=== PATIENT | male | born 1975 | race Caucasian/White ===

== ENCOUNTER 2016-12-15 15:46 | Inpatient (IN) | payer MEDICAID, OTHER ==
[~2016-12-15] VITALS: Ht 177.8 cm; Wt 59.1 kg
[~2016-12-15 15:46] MED LIST: ACET-2247 PO; ACET500C44 PO; AMLO-511 PO; ATRO2DRO OD; BIMA12.5OS OD; BISA5TAB12 PO; BRIM15OS OD; CILO2.5OS OD; CLON.1 PO; DICL1OS OD; DSS100 PO; HYDR-3965 PO; MOM30 PO; MULT-29 PO; PANT40TA25 PO; PREDAOS OD; TIMO10DR28 OD; ZOLP5 PO
[2016-12-15] MEDS ORDERED: TRAZ-144 PO (16:17)
[2016-12-15] MEDS ORDERED: HYDR-4031 PO (16:17)
[2016-12-15] MEDS ORDERED: PROP20 PO (16:17)
[2016-12-15] MEDS ORDERED: BUPR150SR PO (16:17)
[2016-12-15] MEDS ORDERED: LORazepam 2 MG TABLET PO PRN (19:00)
[2016-12-15] MEDS ORDERED: ZOLPIDEM TARTRATE 10 MG TABLET PO PRN (19:00)
[2016-12-15 19:23] LABS: BASOPHILS % (AUTO) 0.2 % (0.0-2.0); EOSINOPHILS % (AUTO) 0.5 % (1.0-6.0); HEMATOCRIT 43.5 % (41-53); HEMOGLOBIN 14.4 g/dL (13.5-17.5); LYMPHOCYTES % (AUTO) 18.7 % (22.0-44.0); MEAN CORPUSCULAR HEMOGLOBIN 32.4 pg (26.0-34.0); MEAN CORPUSCULAR HGB CONC 33.1 G/dL (31.0-37.0); MEAN CORPUSCULAR VOLUME 98 fL (80-100); MONOCYTES # (AUTO) 0.5 K/uL (0.1-1.0); NEUTROPHILS # (AUTO) 3.8 K/uL (1.8-7.7); NEUTROPHILS % (AUTO) 71.6 % (40.0-70.0); PLATELET COUNT (AUTO) 152 K/uL (150-450); RED BLOOD CELL COUNT(AUTO) 4.44 MIL/uL (4.50-5.90); RED CELL DISTRIBUTION WIDTH 13.3 % (11.5-14.5); WHITE BLOOD COUNT (AUTO) 5.3 K/uL (4.5-11.0)
[2016-12-15 19:30] LABS: ANION GAP 11 mmol/L (8-16); CALCIUM, TOTAL 8.8 mg/dL (8.8-10.5); CARBON DIOXIDE 28 mmol/L (22-29); CHLORIDE 99 mmol/L (98-107); CREATININE 1.05 mg/dL (0.60-1.30); GLOMERULAR FILTR. RATE CALC > 60 mL/min (>60); POTASSIUM 4.4 mmol/L (3.5-5.1); SODIUM SERUM 138 mmol/L (136-145); UREA NITROGEN, BLOOD 9 mg/dL (7-18)
[2016-12-15 19:36] LABS: ALANINE AMINOTRANSFERASE 93 U/L (12-78); ALBUMIN 3.9 g/dL (3.4-5.0); ASPARTATE AMINOTRANSFERASE 170 U/L (15-37); BILIRUBIN,TOTAL 0.5 mg/dL (0.1-1.0); TOTAL PROTEIN, SERUM 9.3 g/dL (6.4-8.2)
[2016-12-16] VITALS (11 sets, daily range): BP systolic 106–139; BP diastolic 58–94
[2016-12-16] MEDS ORDERED: LOPERAMIDE HCL 2 MG CAPSULE PO PRN (07:45)
[2016-12-16] MEDS ORDERED: CYANOCOBALAMIN 1,000 MCG/ML VIAL IM ONE (07:45)
[2016-12-16] MEDS ORDERED: GuaiFENesin/D-METHORPHAN [SUGAR-FREE] 200-20MG/10 ML SYRUP UDCUP PO PRN (07:45)
[2016-12-16] MEDS ORDERED: HydrOXYzine PAMOATE 50 MG CAPSULE PO PRN (07:45)
[2016-12-16] MEDS ORDERED: PROMETHAZINE HCL 25 MG TABLET PO PRN (07:45)
[2016-12-16] MEDS ORDERED: LORazepam 2 MG TABLET PO ONE (07:45)
[2016-12-16] MEDS ORDERED: LORazepam 2 MG TABLET PO PRN (07:45)
[2016-12-16] MEDS: QUEtiapine FUMARATE 100 MG TABLET PO PRN (07:47)
[2016-12-16] MEDS: MULTIVITAMINS WITH MINERALS, THERAPEUTIC TABLET PO SCH (07:47)
[2016-12-16] MEDS: THIAMINE HCL 100 MG TABLET PO SCH ×2 (07:48→16:26)
[2016-12-16] MEDS: FOLIC ACID 1 MG TABLET PO SCH (07:48)
[2016-12-16] MEDS ORDERED: BuPROPion HCL 150 MG SR TABLET PO SCH (09:00)
[2016-12-16] MEDS: DIAZEPAM 10 MG TABLET PO PRN ×2 (16:26→22:02)
[2016-12-16] MEDS: MIRTAZAPINE 15 MG TABLET PO SCH (20:33)
[2016-12-17 02:06] VITALS: BP 124/87
[2016-12-17 02:07] VITALS: BP 124/87
[2016-12-17 06:18] VITALS: BP 120/84
[2016-12-17] MEDS ORDERED: DIAZEPAM 10 MG TABLET PO PRN (07:00)
[2016-12-17] MEDS ORDERED: LORazepam 2 MG TABLET PO PRN (07:00)
[2016-12-17] MEDS ORDERED: LORazepam 2 MG TABLET PO SCH (09:00)
[2016-12-17 09:30] VITALS: BP 126/87
[2016-12-17] MEDS: DIAZEPAM 10 MG TABLET PO SCH ×4 (10:16→20:28)
[2016-12-17] MEDS: MULTIVITAMINS WITH MINERALS, THERAPEUTIC TABLET PO SCH (10:16)
[2016-12-17] MEDS: FOLIC ACID 1 MG TABLET PO SCH (10:16)
[2016-12-17] MEDS: NALTREXONE HCL 50 MG TABLET PO SCH (10:16)
[2016-12-17] MEDS: THIAMINE HCL 100 MG TABLET PO SCH ×2 (10:16→16:20)
[2016-12-17] MEDS ORDERED: NALT50 PO (10:55)
[2016-12-17] MEDS ORDERED: MIRT15 PO (10:55)
[2016-12-17] MEDS: NICOTINE 21 MG/24 HOUR PATCH TD SCH (11:17)
[2016-12-17 15:17] VITALS: BP 127/86
[2016-12-17 16:01] VITALS: BP 121/80
[2016-12-17] MEDS: MIRTAZAPINE 15 MG TABLET PO SCH (20:28)
[2016-12-17] MEDS: QUEtiapine FUMARATE 100 MG TABLET PO PRN (20:28)
[2016-12-18 06:22] VITALS: BP 130/78
[2016-12-18] MEDS ORDERED: MIRT15 PO (07:42)
[2016-12-18] MEDS ORDERED: NALT50TA10 PO (07:42)
[2016-12-18] MEDS: NICOTINE 21 MG/24 HOUR PATCH TD SCH (08:11)
[2016-12-18] MEDS: NALTREXONE HCL 50 MG TABLET PO SCH (08:12)
[2016-12-18] MEDS: MULTIVITAMINS WITH MINERALS, THERAPEUTIC TABLET PO SCH (08:12)
[2016-12-18] MEDS: THIAMINE HCL 100 MG TABLET PO SCH (08:12)
[2016-12-18] MEDS: FOLIC ACID 1 MG TABLET PO SCH (08:12)
[2016-12-18] MEDS: DIAZEPAM 10 MG TABLET PO SCH (08:12)
[2016-12-18] MEDS ORDERED: PANTOPRAZOLE SODIUM 40 MG DR TABLET PO SCH (09:00)
[2016-12-18 10:36] VITALS: BP 137/108
[2016-12-18 10:42] VITALS: BP 137/108
[2016-12-19] MEDS ORDERED: DIAZEPAM 5 MG TABLET PO PRN (07:00)
[2016-12-19] MEDS ORDERED: LORazepam 1 MG TABLET PO PRN (07:00)
[2016-12-19] MEDS ORDERED: LORazepam 1 MG TABLET PO SCH (09:00)
[2016-12-19] MEDS ORDERED: DIAZEPAM 5 MG TABLET PO SCH (09:00)
[2016-12-20] MEDS ORDERED: DIAZEPAM 5 MG TABLET PO PRN (07:00)
[2016-12-20] MEDS ORDERED: LORazepam 1 MG TABLET PO PRN (07:00)
== END 2016-12-18 10:15 | disposition home or self-care (01) | DRG 751 ==
LOC: EMS 15:50 → 3EC 19:34
PROVIDERS: ADMIT Psychiatry & Neurology Psychiatry; ATTEND Psychiatry & Neurology Psychiatry
PROC: GZHZZZZ Group Psychotherapy (ICD-10-PCS; principal; 2016-12-15)
PROC: GZ51ZZZ Individual Psychotherapy, Behavioral (ICD-10-PCS; 2016-12-15)
PROC: HZ2ZZZZ Detoxification Services for Substance Abuse Treatment (ICD-10-PCS; 2016-12-15)
DX: F33.2 Major depressive disorder, recurrent severe without psychotic features (principal); K74.60 Unspecified cirrhosis of liver; R45.851 Suicidal ideations; F25.9 Schizoaffective disorder, unspecified; Z91.19 Patient's noncompliance with other medical treatment and regimen; I10 Essential (primary) hypertension; K21.9 Gastro-esophageal reflux disease without esophagitis; F41.9 Anxiety disorder, unspecified; F10.20 Alcohol dependence, uncomplicated; F17.210 Nicotine dependence, cigarettes, uncomplicated; Z71.6 Tobacco abuse counseling; Z87.11 Personal history of peptic ulcer disease; Z59.9 Problem related to housing and economic circumstances, unspecified; Z65.3 Problems related to other legal circumstances; Z79.1 Long term (current) use of non-steroidal anti-inflammatories (NSAID); Z79.899 Other long term (current) drug therapy
CPT/HCPCS: 99285; G0480; J3420

== ENCOUNTER 2017-04-27 16:04 | Emergency (ER) | payer OTHER ==
[~2017-04-27] VITALS: Ht 177.8 cm; Wt 63.6 kg
[~2017-04-27 16:04] MED LIST changes: -ACET-2247 PO; -ACET500C44 PO; -AMLO-511 PO; -ATRO2DRO OD; -BIMA12.5OS OD; -BISA5TAB12 PO; -BRIM15OS OD; +BUPR75 PO; -CILO2.5OS OD; -CLON.1 PO; -DICL1OS OD; -DSS100 PO; -HYDR-3965 PO; +HYDR-4031 PO; -MOM30 PO; -MULT-29 PO; +OMEP20 PO; -PREDAOS OD; +PROP20 PO; -TIMO10DR28 OD; -ZOLP5 PO
[2017-04-27 16:40] LABS: BASOPHILS % (AUTO) 0.2 % (0.0-2.0); EOSINOPHILS % (AUTO) 0.2 % (1.0-6.0); HEMATOCRIT 35.3 % (41-53); HEMOGLOBIN 12.1 g/dL (13.5-17.5); LYMPHOCYTES # (AUTO) 1.8 K/uL (1.0-4.8); LYMPHOCYTES % (AUTO) 35.3 % (22.0-44.0); MEAN CORPUSCULAR HEMOGLOBIN 33.4 pg (26.0-34.0); MEAN CORPUSCULAR HGB CONC 34.4 G/dL (31.0-37.0); MEAN CORPUSCULAR VOLUME 97 fL (80-100); MONOCYTES # (AUTO) 0.4 K/uL (0.1-1.0); MONOCYTES % (AUTO) 7.8 % (2.0-9.0); NEUTROPHILS # (AUTO) 2.9 K/uL (1.8-7.7); NEUTROPHILS % (AUTO) 56.5 % (40.0-70.0); PLATELET COUNT (AUTO) 187 K/uL (150-450); RED BLOOD CELL COUNT(AUTO) 3.63 MIL/uL (4.50-5.90); RED CELL DISTRIBUTION WIDTH 14.1 % (11.5-14.5); WHITE BLOOD COUNT (AUTO) 5.1 K/uL (4.5-11.0)
[2017-04-27 17:06] LABS: ANION GAP 14 mmol/L (8-16); CALCIUM, TOTAL 8.7 mg/dL (8.8-10.5); CARBON DIOXIDE 25 mmol/L (22-29); CHLORIDE 98 mmol/L (98-107); CREATININE 0.94 mg/dL (0.60-1.30); GLOMERULAR FILTR. RATE CALC > 60 mL/min (>60); SODIUM SERUM 137 mmol/L (136-145); UREA NITROGEN, BLOOD 5 mg/dL (7-18)
[2017-04-27 17:14] LABS: ALANINE AMINOTRANSFERASE 146 U/L (12-78); ALBUMIN 4.1 g/dL (3.4-5.0); ASPARTATE AMINOTRANSFERASE 78 U/L (15-37); BILIRUBIN,TOTAL 1.2 mg/dL (0.1-1.0)
[2017-04-27] MEDS ORDERED: BUPR150SR PO (18:28)
[2017-04-27] MEDS ORDERED: TraMADol HCL 50 MG TABLET PO ONE (18:30)
[2017-04-27 19:44] LABS: APPEARANCE,URINE CLEAR (CLEAR); GLUCOSE, URINE (UA) NEGATIVE (NEGATIVE); KETONES,URINE NEGATIVE (NEGATIVE); LEUKOCYTE ESTERASE ,URINE NEGATIVE (NEGATIVE); OCCULT BLOOD,URINE NEGATIVE (NEGATIVE); PH,URINE 5.5 (5.0-8.0); PROTEIN,URINE NEGATIVE (NEGATIVE)
[2017-04-27 19:46] LABS: ADD UA MICROSCOPIC NO
[2017-04-27] MEDS ORDERED: KETOROLAC TROMETHAMINE 60 MG/2 ML VIAL IM ONE (20:00)
[2017-04-27 22:03] VITALS: BP 133/82
== END 2017-04-27 22:14 | disposition home or self-care (01) ==
LOC: EMS 16:05
DX: R10.84 Generalized abdominal pain (principal); K75.9 Inflammatory liver disease, unspecified; F20.9 Schizophrenia, unspecified; F10.10 Alcohol abuse, uncomplicated; I10 Essential (primary) hypertension; F17.210 Nicotine dependence, cigarettes, uncomplicated; Y90.9 Presence of alcohol in blood, level not specified
CPT/HCPCS: 36415; 74176; 80053; 80307; 81003; 83690; 85025; 96372; 99285; 99406; J1885

== ENCOUNTER 2017-07-15 01:43 | Emergency (ER) | payer OTHER ==
[~2017-07-15] VITALS: Ht 177.8 cm; Wt 65.5 kg
[~2017-07-15 01:43] MED LIST changes: +BUPR150SR PO; -BUPR75 PO
[2017-07-15] MEDS ORDERED: HydrOXYzine PAMOATE 50 MG CAPSULE PO ONE (02:30)
[2017-07-15] MEDS ORDERED: OMEPRAZOLE 20 MG CAPSULE PO ONE (02:30)
[2017-07-15] MEDS ORDERED: MAG HYDROX/AL HYDROX/SIMETH ES 30 ML SUSPENSION UDCUP PO ONE (02:30)
[2017-07-15 02:42] LABS: BASOPHILS % (AUTO) 0.9 % (0.0-2.0); HEMATOCRIT 40.1 % (41-53); HEMOGLOBIN 13.9 g/dL (13.5-17.5); LYMPHOCYTES # (AUTO) 2.1 K/uL (1.0-4.8); LYMPHOCYTES % (AUTO) 38.7 % (22.0-44.0); MEAN CORPUSCULAR HEMOGLOBIN 34.1 pg (26.0-34.0); MEAN CORPUSCULAR HGB CONC 34.7 G/dL (31.0-37.0); MEAN CORPUSCULAR VOLUME 98 fL (80-100); MONOCYTES # (AUTO) 0.4 K/uL (0.1-1.0); MONOCYTES % (AUTO) 7.8 % (2.0-9.0); NEUTROPHILS # (AUTO) 2.8 K/uL (1.8-7.7); NEUTROPHILS % (AUTO) 51.6 % (40.0-70.0); PLATELET COUNT (AUTO) 186 K/uL (150-450); RED BLOOD CELL COUNT(AUTO) 4.08 MIL/uL (4.50-5.90); RED CELL DISTRIBUTION WIDTH 14.3 % (11.5-14.5); WHITE BLOOD COUNT (AUTO) 5.3 K/uL (4.5-11.0)
[2017-07-15 02:51] LABS: ANION GAP 12 mmol/L (8-16); CALCIUM, TOTAL 8.6 mg/dL (8.8-10.5); CARBON DIOXIDE 28 mmol/L (22-29); CHLORIDE 98 mmol/L (98-107); CREATININE 0.84 mg/dL (0.60-1.30); GLOMERULAR FILTR. RATE CALC > 60 mL/min (>60); POTASSIUM 4.6 mmol/L (3.5-5.1); SODIUM SERUM 138 mmol/L (136-145); UREA NITROGEN, BLOOD 9 mg/dL (7-18)
[2017-07-15 02:56] LABS: ALANINE AMINOTRANSFERASE 32 U/L (12-78); ALBUMIN 4.3 g/dL (3.4-5.0); ASPARTATE AMINOTRANSFERASE 58 U/L (15-37); BILIRUBIN,TOTAL 0.6 mg/dL (0.1-1.0); TOTAL PROTEIN, SERUM 8.5 g/dL (6.4-8.2)
[2017-07-15 04:58] VITALS: BP 107/71
== END 2017-07-15 05:07 | disposition home or self-care (01) ==
LOC: EMS 01:45
DX: K70.30 Alcoholic cirrhosis of liver without ascites (principal); F41.9 Anxiety disorder, unspecified; F10.129 Alcohol abuse with intoxication, unspecified; F17.210 Nicotine dependence, cigarettes, uncomplicated; I10 Essential (primary) hypertension; Z59.0 Homelessness; Y90.7 Blood alcohol level of 200-239 mg/100 ml
CPT/HCPCS: 36415; 80053; 80307; 83690; 84484; 85025; 99284; 99406; G0480

== ENCOUNTER 2017-12-18 22:20 | Emergency (ER) | payer OTHER ==
[~2017-12-18] VITALS: Ht 175.3 cm; Wt 61.4 kg
[~2017-12-18 22:20] MED LIST changes: -PROP20 PO; +PROP20TA18 PO
[2017-12-18 23:21] LABS: BASOPHILS % (AUTO) 0.8 % (0.0-2.0); EOSINOPHILS % (AUTO) 1.4 % (1.0-6.0); HEMATOCRIT 38.3 % (41-53); LYMPHOCYTES # (AUTO) 1.1 K/uL (1.0-4.8); LYMPHOCYTES % (AUTO) 23.1 % (22.0-44.0); MEAN CORPUSCULAR HEMOGLOBIN 33.5 pg (26.0-34.0); MEAN CORPUSCULAR HGB CONC 33.9 G/dL (31.0-37.0); MEAN CORPUSCULAR VOLUME 99 fL (80-100); MONOCYTES # (AUTO) 0.6 K/uL (0.1-1.0); MONOCYTES % (AUTO) 12.9 % (2.0-9.0); NEUTROPHILS % (AUTO) 61.8 % (40.0-70.0); RED BLOOD CELL COUNT(AUTO) 3.87 MIL/uL (4.50-5.90)
[2017-12-18] MEDS ORDERED: SODIUM CHLORIDE 0.9% 1,000 ML IV ONE (23:30)
[2017-12-18] MEDS ORDERED: PANTOPRAZOLE SODIUM 40 MG/VIAL IVP ONE (23:30)
[2017-12-18] MEDS ORDERED: MORPHINE SULFATE 4 MG/ML SYRINGE IVP ONE (23:30)
[2017-12-18] MEDS ORDERED: ONDANSETRON HCL 4 MG/2 ML VIAL IVP ONE (23:30)
[2017-12-18 23:32] LABS: INR 0.9 (0.9-1.1); PROTHROMBIN TIME 9.4 SEC (9.4-11.6)
[2017-12-18 23:33] LABS: ANION GAP 14 mmol/L (8-16); CALCIUM, TOTAL 8.5 mg/dL (8.8-10.5); CARBON DIOXIDE 27 mmol/L (22-29); CHLORIDE 98 mmol/L (98-107); CREATININE 0.83 mg/dL (0.60-1.30); GLOMERULAR FILTR. RATE CALC > 60 mL/min (>60); GLUCOSE,RANDOM 88 mg/dL (70-110); POTASSIUM 3.8 mmol/L (3.5-5.1); SODIUM SERUM 139 mmol/L (136-145); UREA NITROGEN, BLOOD 6 mg/dL (7-18)
[2017-12-18 23:38] LABS: ALANINE AMINOTRANSFERASE 146 U/L (12-78); ALKALINE PHOSPHATASE 116 U/L (46-116); ASPARTATE AMINOTRANSFERASE 186 U/L (15-37); BILIRUBIN,TOTAL 0.4 mg/dL (0.1-1.0); LIPASE 245 U/L (73-393); TOTAL PROTEIN, SERUM 8.4 g/dL (6.4-8.2)
[2017-12-18 23:55] LABS: PLATELET COUNT (AUTO) 95 K/uL (150-450)
[2017-12-19] MEDS ORDERED: PROMETHAZINE HCL/CODEINE 6.25-10MG/5ML SYRUP UDCUP PO ONE (04:00)
[2017-12-19 04:58] VITALS: BP 124/82
[2017-12-19] MEDS ORDERED: SODIUM CHLORIDE 0.65% 44 ML NASAL SPRAY NASAL ONE (05:15)
== END 2017-12-19 05:27 | disposition home or self-care (01) ==
LOC: EMS 22:22
DX: R10.13 Epigastric pain (principal); R11.2 Nausea with vomiting, unspecified; F10.129 Alcohol abuse with intoxication, unspecified; I10 Essential (primary) hypertension; R04.0 Epistaxis; R05 Cough; R09.81 Nasal congestion; F17.210 Nicotine dependence, cigarettes, uncomplicated; Y90.8 Blood alcohol level of 240 mg/100 ml or more
CPT/HCPCS: 36415; 74022; 80053; 83690; 85025; 85610; 85730; 93005; 96361; 96374; 96375; 99285; C9113; G0480; J2270; J2405; J7030

== ENCOUNTER 2019-03-02 15:26 | Emergency (ER) | payer MEDICARE, OTHER ==
[~2019-03-02] VITALS: Ht 175.3 cm; Wt 61.4 kg
[2019-03-02 16:11] LABS: BASOPHILS % (AUTO) 0.6 % (0.0-2.0); EOSINOPHILS % (AUTO) 0.5 % (1.0-6.0); HEMATOCRIT 41.7 % (41-53); HEMOGLOBIN 13.7 g/dL (13.5-17.5); LYMPHOCYTES # (AUTO) 0.8 K/uL (1.0-4.8); LYMPHOCYTES % (AUTO) 23.4 % (22.0-44.0); MEAN CORPUSCULAR HEMOGLOBIN 33.7 pg (26.0-34.0); MEAN CORPUSCULAR VOLUME 102 fL (80-100); MONOCYTES # (AUTO) 0.3 K/uL (0.1-1.0); MONOCYTES % (AUTO) 8.5 % (2.0-9.0); NEUTROPHILS # (AUTO) 2.2 K/uL (1.8-7.7); RED BLOOD CELL COUNT(AUTO) 4.08 MIL/uL (4.50-5.90); RED CELL DISTRIBUTION WIDTH 12.9 % (11.5-14.5)
[2019-03-02 16:54] LABS: PLATELET COUNT (AUTO) 93 K/uL (150-450)
[2019-03-02 16:56] LABS: PLATELET MORPHOLOGY COMMENT LARGE PLTS PRESENT
[2019-03-02 17:09] LABS: AMPHET/METH SCREEN,URINE NEGATIVE (NEGATIVE); BARBITURATE SCREEN, URINE NEGATIVE (NEGATIVE); BENZODIAZEPINES SCREEN,URINE NEGATIVE (NEGATIVE); CANNABINOID SCREEN,URINE NEGATIVE (NEGATIVE); COCAINE SCREEN,URINE NEGATIVE (NEGATIVE); METHADONE SCREEN, URINE NEGATIVE (NEGATIVE); OPIATE SCREEN,URINE NEGATIVE (NEGATIVE)
[2019-03-02 17:11] LABS: PHENCYCLIDINE SCREEN,URINE NEGATIVE (NEGATIVE)
[2019-03-02 17:14] LABS: B-TYPE NATRIURETIC PEPTIDE 5 pg/mL (0-100)
[2019-03-02 17:18] LABS: APPEARANCE,URINE CLEAR (CLEAR); BILIRUBIN,URINE NEGATIVE (NEGATIVE); GLUCOSE, URINE (UA) NEGATIVE (NEGATIVE); KETONES,URINE NEGATIVE (NEGATIVE); LEUKOCYTE ESTERASE ,URINE NEGATIVE (NEGATIVE); NITRATE,URINE NEGATIVE (NEGATIVE); OCCULT BLOOD,URINE NEGATIVE (NEGATIVE); PH,URINE 5.5 (5.0-8.0); PROTEIN,URINE NEGATIVE (NEGATIVE); UROBILINOGEN,URINE 0.2 mg/dL (<=1.0)
[2019-03-02 17:22] LABS: ANION GAP 11 mmol/L (8-16); CARBON DIOXIDE 29 mmol/L (22-29); CHLORIDE 100 mmol/L (98-107); CREATININE 0.88 mg/dL (0.60-1.30); GLOMERULAR FILTR. RATE CALC > 60 mL/min (>60); GLUCOSE,RANDOM 81 mg/dL (70-110); POTASSIUM 4.4 mmol/L (3.5-5.1); SODIUM SERUM 140 mmol/L (136-145); UREA NITROGEN, BLOOD 4 mg/dL (7-18)
[2019-03-02 17:45] LABS: ALANINE AMINOTRANSFERASE 95 U/L (12-78); ALBUMIN 4.2 g/dL (3.4-5.0); ALKALINE PHOSPHATASE 94 U/L (46-116); ASPARTATE AMINOTRANSFERASE 129 U/L (15-37); BILIRUBIN,TOTAL 0.3 mg/dL (0.1-1.0); CREATINE KINASE, TOTAL ONLY 380 U/L (39-308)
[2019-03-02 18:46] VITALS: BP 116/77
== END 2019-03-02 19:00 | disposition home or self-care (01) ==
LOC: EMS 15:27
DX: F10.239 Alcohol dependence with withdrawal, unspecified (principal); R42 Dizziness and giddiness; F17.210 Nicotine dependence, cigarettes, uncomplicated; F41.9 Anxiety disorder, unspecified; F32.9 Major depressive disorder, single episode, unspecified; I10 Essential (primary) hypertension; Z79.899 Other long term (current) drug therapy; Y90.8 Blood alcohol level of 240 mg/100 ml or more
CPT/HCPCS: 36415; 70450; 80053; 80307; 81003; 82550; 83880; 84484; 85025; 93005; 99285; 99406; G0480